=== PATIENT | female | born 1985 | race Caucasian/White ===

== ENCOUNTER 2018-09-23 19:30 | Emergency (ER) | payer BC ==
[2018-09-23] MEDS ORDERED: Morphine 4 MG/ML VIAL ONE ×2 (20:10→22:20)
--- NOTE | 2018-09-23 21:14 | RAD ---
TWO VIEWS THORACIC SPINE: 09/23/18 HISTORY: Pain. Injury. COMPARISON: None. FINDINGS: thoracic spine vertebral body heights are maintained. No fracture. Disc space heights are preserved. IMPRESSION: No fracture. POS: [place]
--- NOTE | 2018-09-23 21:18 | CT ---
CT CERVICAL SPINE WITHOUT CONTRAST: 09/23/18 HISTORY: Mid and lower back pain after landing on her neck while attempting a flip at [employer]. COMPARISON: None. FINDINGS: There is no prevertebral soft tissue swelling. Central spinal canal and neural foramina are patent. E valuation is limited by technique. Upper mediastinum and lung apices are unremarkable. There is strai ghtening of normal cervical lordosis may be due to patient position, muscle spasm or cervical collar. If there is concern for ligamentous injury, consider MRI. There is no craniocervical dissociation. Lateral masses of C1 and C2 articulate appropriately. Intact odontoid process. Cervical spine vertebral body height is maintained. There is no fracture. IMPRESSION: 1. No cervical spine fracture. 2. Straightening of normal cervical lordosis as above. If there is concern for ligamentous injur y, consider MRI. POS: [facility]
--- NOTE | 2018-09-23 21:20 | RAD ---
LUMBAR SPINE THREE VIEWS: 09/23/18 HISTORY: Pain. COMPARISON: None. FINDINGS: There appear to be mild irregularities involving the superior end plate of T12 and L1. Possibility of fracture at these levels cannot be excluded. CT is recommended. Note, there are five lumbar type vertebral bodies. Disc space heights are preserved. IMPRESSION: Possible fractures involving the anterior superior aspect of T12 and L1. CT is recommended. POS: [facility]
--- NOTE | 2018-09-23 22:43 | CT ---
LUMBAR SPINE CT WITHOUT CONTRAST: 09/23/18 HISTORY: Posttraumatic pain. Trampoline injury. COMPARISON: None. TECHNIQUE: The lumbar spine CT is performed without contrast. Reformatted images are submitted for interpretatio n. FINDINGS: Retroperitoneal structures are unremarkable. Nonobstructing punctate calcification in the right intra renal collecting system. Symmetric attenuation of psoas muscles. No retroperitoneal mass, lymphadenop athy, or significant hematoma. There is mild irregularity involving the anterior superior end plate o f T12 and L1. There is no significant loss of vertebral body height. No retropulsion. With regards to L2 to L5 vertebral body height is maintained. There are no fractures. There is no malalignment. No s pondylolisthesis. No spondylolysis. Limited evaluation of the contents of the central spinal canal an d neural foramina due to technique. T11-T12, T12-L1 and L1-L2: No significant central canal stenosis or neural foraminal narrowing. L2-L3: No significant central canal stenosis or foraminal narrowing. L3-L4: No significant central canal stenosis. L4-L5: Minimal generalized disc bulge. Mild central canal stenosis. Neural foramina are patent. L5-S1: Minimal generalized disc bulge. No significant stenosis upon the thecal sac. Neural foramina a re patent bilaterally. IMPRESSION: Minimal fractures involving the anterior superior aspect of T12 and L1. No associated retropulsion or significant central canal stenosis. POS: [facility]
[2018-09-24] MEDS ORDERED: Morphine 4 MG/ML VIAL ONE (00:06)
== END 2018-09-24 00:45 | disposition home or self-care (01) ==
LOC: ERS 19:30
DX: S22.089A Unspecified fracture of T11-T12 vertebra, initial encounter for closed fracture (principal); S32.019A Unspecified fracture of first lumbar vertebra, initial encounter for closed fracture; S39.012A Strain of muscle, fascia and tendon of lower back, initial encounter; X50.0XXA Overexertion from strenuous movement or load, initial encounter
CPT/HCPCS: 72072; 72100; 72125; 72131; 96372; J2270